=== PATIENT | female | born 1970 | race Caucasian/White ===

== ENCOUNTER 2020-12-23 22:40 | Inpatient (IN) | payer SELFPAY ==
[2020-12-23 23:17] VITALS: BP 124/69; PULSE 104; RESP 18; TEMP 36.6; O2SAT 96
[2020-12-23 23:18] VITALS: BMI 25.9
[2020-12-24] MEDS: nicotine 2 mg Gum BUCCAL ×2 (00:10→20:39)
[2020-12-24] MEDS: trazodone 50 mg Tablet PO ×2 (00:10→20:40)
[2020-12-24] MEDS: hyDROXYzine 25 mg Capsule 50 MG PO ×2 (00:10→20:40)
[2020-12-24 06:00] VITALS: BP 122/77; PULSE 88; RESP 16; TEMP 36.8; O2SAT 95; BMI 25.9
--- NOTE | 2020-12-24 06:08 | PC.NURSE ---
theron IS ASSESS ONLY ON ADMISSION PT STATED SHE IS A DAILY DRINKER, 6 WHISKEY SHOOTERS A DAY, BUT MAY BE USING MORE, BAL WAS NEG AT TIME OF TRANSFER, ASSESS IS PRECAUTIONARY TO AID IN EVAL WHILE ON UNIT.
--- NOTE | 2020-12-24 06:09 | PC.NURSE ---
RT CONSULT REQUESTED PT HAS COPD, DAILY SMOKER, AND USES NEBULIZED MEDICATIONS, ALBUTEROL IS ONE SHE NAMED BUT WE WERE NOT ABLE TO CONFIRM ON ADMISSION. SHE BELIEVES SHE USED A SECOND ONE ALSO. POOR HISTORIAN AT TIME OF ADMIT SHE WAS CRYING AND UNABLE TO SPEAK ABOVE A HOARSE WHISPER.
[2020-12-24 09:18] VITALS: O2SAT 95
[2020-12-24 14:00] VITALS: BP 116/72; PULSE 101; RESP 18; TEMP 37
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
--- NOTE | 2020-12-24 21:24 | PC.NURSE ---
2039 Pt requested Trazadone 50mg PO and Vistaril 50mg po for sleep and anxiety. Also requested Nicotine Gum.
[2020-12-24 21:39] VITALS: BP 122/73; PULSE 86; RESP 16; TEMP 36.7; O2SAT 95
[2020-12-24 21:55] VITALS: PULSE 97; RESP 20; O2SAT 97
[2020-12-24] MEDS: albuterol 8 gm MDI 2 PUFF INHALATION (21:55)
[2020-12-24 21:58] VITALS: PULSE 97
[2020-12-25 06:00] VITALS: BP 100/68; PULSE 93; RESP 16; TEMP 36.3; O2SAT 95
[2020-12-25 10:49] VITALS: PULSE 95; RESP 18; O2SAT 97
[2020-12-25] MEDS: albuterol 8 gm MDI 2 PUFF INHALATION ×2 (10:49→21:11)
[2020-12-25 10:51] VITALS: PULSE 91
[2020-12-25] MEDS: BuSPIRONE 10 mg Tablet 15 MG PO ×2 (11:37→17:36)
[2020-12-25 14:00] VITALS: BP 121/79; PULSE 94; RESP 17; TEMP 37.1; O2SAT 97
--- NOTE | 2020-12-25 18:56 | PM.NPN ---
Subjective NPU Subjective: Interval history: Taylor presents today reporting that she is tolerating the BuSpar and that is helpful without some side effects that she had with the Zoloft. She reports she had time to reflect and has had conversations with her daughter and endorses plan to figure out some of the challenges that led her to coming to the hospital. She reports he is eating a little better and sleeping little better feeling a little less anxious. We discussed likelihood of discharge the next 48 hours. Mental Status Exam MSE Comments: This is an overweight middle-aged white female looking slightly older than stated age with limited grooming and adequate eye contact. No abnormal movements except for mild psychomotor retardation. Cooperative with exam in no acute distress. Speech was slightly decreased rate and volume. Mood described as a little better, affect congruent. Thought process organized. Thought content: Patient denied suicidal or homicidal ideation, there were no delusions reported or noted, she denied any auditory or visual hallucinations. Attention and concentration were intact and memory appeared viable but none were formally tested. She alert and oriented x3. Insight and judgment were fair Vitals/I&O/Wt Last Vital Signs Temp 97.9 F 12/25/20 22:00 Pulse 82 12/25/20 22:00 Resp 15 12/25/20 22:00 BP 138/84 12/25/20 22:00 Pulse Ox 97 12/25/20 22:00 Weight last 48 hrs Weight 70.76 kg A&P Additional A&P Information (1) Anxiety: (2) Depression: (3) Family conflict: (4) Parent-child relational problem: (5) History of trauma: Additional A&P Information This is a 50-year-old white female with limited history of mental health treatment with recent treatment reportedly with her PCP with with addiction and trauma history, but reporting being overwhelmed with recent circumstances and having a medication prescribed by her doctor which she has not tried yet. 1. Continue current medication. Patient responding well to the initiation of BuSpar 15 mg p.o. twice daily. 2. Continue every 15 minute checks for safety. 3. Encourage individual, group and milieu therapies. 4. Encourage sober living treatment after discharge at the highest level of care to which he is willing to commit. Involuntary Hold Information 96 Hour Hold: 96 Hour Involuntary Admission: No Attestations NPU Medical Necessity Statement*: Inpatient hospitalization is medically necessary and the clinically appropriate intervention at this time. We will monitor medications and make changes as indicated. Patient will be in the hospital for over two midnights. Likely length of stay 1-3 days. Coding Level of Care Code Acute Regional Transfer Liaison for Ray Mora
[2020-12-25] MEDS: hyDROXYzine 25 mg Capsule 50 MG PO (21:03)
[2020-12-25 21:12] VITALS: PULSE 92; PULSE 93; RESP 18; O2SAT 97
[2020-12-25] MEDS: nicotine 2 mg Gum BUCCAL (21:44)
[2020-12-25 22:00] VITALS: BP 138/84; PULSE 82; RESP 15; TEMP 36.6; O2SAT 97
[2020-12-26 06:00] VITALS: BP 143/93; PULSE 93; RESP 15; TEMP 37.1; O2SAT 98
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
[2020-12-26 07:42] VITALS: BP 143/93; PULSE 93; RESP 15; TEMP 37.1; O2SAT 98
[2020-12-26] MEDS: BuSPIRONE 10 mg Tablet 15 MG PO (08:54)
== END 2020-12-26 12:06 | disposition home or self-care (01) | DRG 880 ==
PROVIDERS: Admitting Provider Psychiatry & Neurology Psychiatry; Visit Provider Psychiatry & Neurology Psychiatry
DX: F41.9 Anxiety disorder, unspecified (principal); F17.210 Nicotine dependence, cigarettes, uncomplicated; F10.10 Alcohol abuse, uncomplicated; J44.9 Chronic obstructive pulmonary disease, unspecified; F32.9 Major depressive disorder, single episode, unspecified; Z63.79 Other stressful life events affecting family and household; Z62.820 Parent-biological child conflict
CPT/HCPCS: 94640; 94664; J3535